=== PATIENT | female | born 1960 | race Caucasian/White ===

== ENCOUNTER → 2018-01-22 | Outpatient (CLI) | payer BC ==
[2018-01-23 23:12] LABS: CHLAMYDIA TRACHOMATIS, NAA Negative (Negative); NEISSERIA GONORRHOEAE, NAA Negative (Negative)
== END | disposition home or self-care (01) ==
LOC: LAB SHORT 12:15 → LAB 12:15
PROVIDERS: Internal Medicine Infectious Disease
DX: B20 Human immunodeficiency virus [HIV] disease (principal)
CPT/HCPCS: 87491; 87591

== ENCOUNTER 2023-05-12 09:51 | Observation (INO) | payer BC ==
[~2023-05-12] VITALS: Ht 167.6 cm; Wt 70.4 kg
[2023-05-12] MEDS ORDERED: VARENICLINE TA1 EACH PO (10:07)
[2023-05-12] MEDS ORDERED: LOSARTAN POTASS25 M2 PO (10:07)
[2023-05-12 10:37] LABS: BASOPHILS ABSOLUTE AUTO 0.06 K/mm3 (0.00-0.23); BASOPHILS PERCENT AUTO 1 % (0-2); EOSINOPHILS ABSOLUTE AUTO 0.12 K/mm3 (0.00-0.68); EOSINOPHILS PERCENT AUTO 2 % (0-6); Hematocrit 37.9 % (33.0-51.0); Hemoglobin 12.9 g/dL (11.5-16.0); IMMATURE GRAN ABSOLUTE AUTO 0.03 K/mm3 (0.00-0.10); IMMATURE GRAN PERCENT AUTO 0 % (0-1); LYMPHOCYTES ABSOLUTE AUTO 2.48 K/mm3 (0.84-5.20); LYMPHOCYTES PERCENT AUTO 31 % (21-46); MONOCYTES ABSOLUTE AUTO 0.48 K/mm3 (0.16-1.47); MONOCYTES PERCENT AUTO 6 % (4-13); Mean Corpuscular HGB 30.4 pg (26.0-34.0); Mean Corpuscular Volume 89 fL (80-100); Mean Platelet Volume 10.6 fL (9.1-12.4); NEUTROPHILS ABSOLUTE AUTO 4.74 K/mm3 (1.96-9.15); NEUTROPHILS PERCENT AUTO 60 % (41-73); Platelet Count 259 K/mm3 (150-400); RDW Coefficient Variation 13.3 % (11.7-14.2); RDW Standard Deviation 43.6 fL (35.1-46.3); Red Blood Cell Count 4.24 M/mm3 (3.80-5.20); White Blood Cell Count 7.91 K/mm3 (4.00-11.30)
[2023-05-12 10:52] LABS: Albumin, Blood 3.6 g/dL (3.4-5.0); Albumin/Globulin Ratio 1.1 (0.8-1.8); Bilirubin, Total 0.4 mg/dL (0.1-1.0); Calcium, Blood 8.6 mg/dL (8.5-10.1); Creatinine, Blood 1.09 mg/dL (0.40-1.00); Globulin, Blood 3.2 g/dL (2.2-4.0); Potassium, Blood 3.7 mmol/L (3.5-5.5); Total Protein, Blood 6.8 g/dL (6.4-8.2)
[2023-05-12 14:02] VITALS: BP 124/87
[2023-05-12] MEDS ORDERED: BIKTARVY 50-201 EAC1 PO (16:37)
--- NOTE | 2023-05-12 17:13 | NUR ---
ADMISSION AND SHIFT SUMMARY PATIENT ADMITTED TO MEDICAL FLOOR FOR POSSIBLE CVA/TIA. PATIENT ALERT AND ORIENTED. AMBULATING INDEPENDENTLY. NO SIGNS OF WEAKNESS. NO SPEECH ISSUES NOTED. PATIENT ABLE TO DRINK REGULAR FLUIDS WITH NO SIGNS OF CHOKING. PATIENT DENIES ANY PAIN OR SOB. PATIENT VERY ANXIOUS ABOUT BEING HERE. PATIENT STATES THAT SHE HAS HAD A LOT OF STRESS LATELY. PATIENT IS A SMOKER. RECENTLY TRIED TO QUIT BUT HAD INCREASE IN STRESS AND STARTED SMOKING AGAIN. NO SKIN ISSUES. HEAD CT, ECHO, CTA DONE. PATIENT CURRENTLY ON TELE IN .
[2023-05-12 20:08] VITALS: BP 120/65
--- NOTE | 2023-05-13 03:37 | NUR ---
SHIFT SUMMERY, PT APPEARS TO BE SLEEPING, EARLYER IN SHIFT PTS HERE TO VISIT. PT ALERT AND ORIENTED X4, NO VISION CHANGEDS NO PO DROOP, NO DEVATION TO TOUNGE. EQUAL STRONG HAND GRASPS, EQUAL PUSH PULLS X4. NO DRIFT TO ARMS OR LEGS NO NUMBNESS OR TINGLING. CALL LIGHT IN REACH.
[2023-05-13 04:51] VITALS: BP 145/73
[2023-05-13 05:00] LABS: BASOPHILS ABSOLUTE AUTO 0.06 K/mm3 (0.00-0.23); BASOPHILS PERCENT AUTO 1 % (0-2); EOSINOPHILS ABSOLUTE AUTO 0.22 K/mm3 (0.00-0.68); EOSINOPHILS PERCENT AUTO 4 % (0-6); Hematocrit 37.5 % (33.0-51.0); Hemoglobin 12.6 g/dL (11.5-16.0); IMMATURE GRAN ABSOLUTE AUTO 0.02 K/mm3 (0.00-0.10); IMMATURE GRAN PERCENT AUTO 0 % (0-1); LYMPHOCYTES ABSOLUTE AUTO 2.21 K/mm3 (0.84-5.20); LYMPHOCYTES PERCENT AUTO 40 % (21-46); MONOCYTES ABSOLUTE AUTO 0.42 K/mm3 (0.16-1.47); MONOCYTES PERCENT AUTO 8 % (4-13); Mean Corpuscular HGB 30.2 pg (26.0-34.0); Mean Corpuscular HGB Conc 33.6 g/dL (31.5-36.5); Mean Corpuscular Volume 90 fL (80-100); Mean Platelet Volume 10.1 fL (9.1-12.4); NEUTROPHILS ABSOLUTE AUTO 2.65 K/mm3 (1.96-9.15); NEUTROPHILS PERCENT AUTO 48 % (41-73); Platelet Count 248 K/mm3 (150-400); RDW Coefficient Variation 13.4 % (11.7-14.2); Red Blood Cell Count 4.17 M/mm3 (3.80-5.20); White Blood Cell Count 5.58 K/mm3 (4.00-11.30)
[2023-05-13 05:44] LABS: Alanine Aminotransfer (ALT/SGP 20 U/L (12-78); Albumin, Blood 3.4 g/dL (3.4-5.0); Albumin/Globulin Ratio 1.1 (0.8-1.8); Alk Phos 64 U/L (50-136); Anion Gap 5 mmol/L (6-16); Aspartate Aminotrans (AST/SGOT 16 U/L (12-37); Bilirubin, Total 0.3 mg/dL (0.1-1.0); Blood Urea Nitrogen 14 mg/dL (8-24); Bun/Creatinine Ratio 13.6 (12.0-20.0); CHOL/HDL RATIO 7.1; CO2, Blood 25 mmol/L (21-32); Calcium, Blood 8.5 mg/dL (8.5-10.1); Chloride, Blood 113 mmol/L (98-108); Cholesterol 219 mg/dL (50-200); Creatinine, Blood 1.03 mg/dL (0.40-1.00); Globulin, Blood 3.1 g/dL (2.2-4.0); Glomerular Filtration Rate 62 (60-); Glucose, Blood 101 mg/dL (70-99); HDL Cholesterol 31 mg/dL (>39); LDL/HDL RATIO 5.3; Low Density Lipoprotein Chol 163 mg/dL (0-110); Magnesium, Blood 2.2 mg/dL (1.6-2.4); Potassium, Blood 3.9 mmol/L (3.5-5.5); Sodium, Blood 143 mmol/L (136-145); Total Protein, Blood 6.5 g/dL (6.4-8.2); Triglycerides 124 mg/dL (30-160); Very Low Density Lipoprot Chol 24 mg/dL (6-32)
[2023-05-13] MEDS ORDERED: ASPI81CH PO (10:51)
[2023-05-13] MEDS ORDERED: CLOP75 PO (10:51)
[2023-05-13] MEDS ORDERED: ATOR40TA PO (10:51)
[2023-05-13] MEDS ORDERED: TOPI50 PO (10:54)
--- NOTE | 2023-05-13 12:00 | NUR ---
SHIFT SUMMARY AND DISCHARGE PATIENT CONTINUES TO BE INDEPENDENT IN THE ROOM. ALERT AND ORIENTED. SLIGHT WEAKNESS NOTED IN [employer]. PATIENT DENIES ANY CP, CONTINUES TO HAVE MILD HEADACHE. PATIENT TO HAVE ZIO PATCH PLACED OUTPATIENT. DISCHARGE INSTRUCTIONS REVIEWED WITH PATIENT. IV DC'D PATIENT TRANSPORTED OUT VIA WHEELCHAIR. CT, MRI AND ECHO DONE PRIOR TO DISCHARGE.
== END 2023-05-13 12:45 | disposition home or self-care (01) ==
LOC: ER 09:51 → MEDS 09:52 → ENPENDDIS 05-13 10:18 → MEDS 05-13 12:45
PROVIDERS: Family Medicine; ADMIT Student in an Organized Health Care Education/Training Program
DX: G45.9 Transient cerebral ischemic attack, unspecified (principal); N18.9 Chronic kidney disease, unspecified; F17.210 Nicotine dependence, cigarettes, uncomplicated; G43.409 Hemiplegic migraine, not intractable, without status migrainosus; E78.5 Hyperlipidemia, unspecified; Z88.2 Allergy status to sulfonamides
CPT/HCPCS: 36415; 70450; 70496; 70498; 70551; 80053; 80061; 83036; 83735; 84484; 85025; 93005; 93010; 93306; 96372; 99285-25; A9270; G0378; J1650; Q9967

== ENCOUNTER → 2024-02-15 | Outpatient (CLI) | payer BC ==
[~2024-02-15] MED LIST: ASPI81CH PO; ATOR40TA PO; BIKTARVY 50-201 EAC1 PO; CLOP75 PO; LOSARTAN POTASS25 M2 PO; TOPI50 PO; VARENICLINE TA1 EACH PO
[2024-02-15 13:58] LABS: Cholesterol 165 mg/dL (50-200); HDL Cholesterol 41 mg/dL (>39); LDL/HDL RATIO 2.4; Low Density Lipoprotein Chol 99 mg/dL (0-110); Triglycerides 124 mg/dL (30-160); Very Low Density Lipoprot Chol 24 mg/dL (6-32)
== END | disposition home or self-care (01) ==
LOC: LAB SHORT 11:38 → LAB 11:38
PROVIDERS: Family Medicine
DX: E78.5 Hyperlipidemia, unspecified (principal)
CPT/HCPCS: 80061

== ENCOUNTER → 2024-03-28 | Outpatient (CLI) | payer BC ==
[2024-03-28 11:37] LABS: BASOPHILS ABSOLUTE AUTO 0.08 K/mm3 (0.00-0.23); BASOPHILS PERCENT AUTO 1 % (0-2); EOSINOPHILS ABSOLUTE AUTO 0.19 K/mm3 (0.00-0.68); EOSINOPHILS PERCENT AUTO 2 % (0-6); Hematocrit 44.2 % (33.0-51.0); Hemoglobin 14.8 g/dL (11.5-16.0); IMMATURE GRAN ABSOLUTE AUTO 0.02 K/mm3 (0.00-0.10); IMMATURE GRAN PERCENT AUTO 0 % (0-1); LYMPHOCYTES ABSOLUTE AUTO 2.66 K/mm3 (0.84-5.20); LYMPHOCYTES PERCENT AUTO 30 % (21-46); MONOCYTES ABSOLUTE AUTO 0.77 K/mm3 (0.16-1.47); MONOCYTES PERCENT AUTO 9 % (4-13); Mean Corpuscular HGB Conc 33.5 g/dL (31.5-36.5); Mean Corpuscular Volume 96 fL (80-100); NEUTROPHILS ABSOLUTE AUTO 5.18 K/mm3 (1.96-9.15); NEUTROPHILS PERCENT AUTO 58 % (41-73); Platelet Count 209 K/mm3 (150-400); RDW Coefficient Variation 13.1 % (11.7-14.2); RDW Standard Deviation 46.1 fL (35.1-46.3); Red Blood Cell Count 4.62 M/mm3 (3.80-5.20)
[2024-03-28 12:36] LABS: Albumin, Blood 3.8 g/dL (3.4-5.0); Albumin/Globulin Ratio 1.2 (0.8-1.8); Bilirubin, Total 0.4 mg/dL (0.1-1.0); Bun/Creatinine Ratio 14.5 (12.0-20.0); Calcium, Blood 8.8 mg/dL (8.5-10.1); Creatinine, Blood 1.1 mg/dL (0.40-1.00); Globulin, Blood 3.3 g/dL (2.2-4.0); Potassium, Blood 4.3 mmol/L (3.5-5.5); Total Protein, Blood 7.1 g/dL (6.4-8.2)
== END | disposition home or self-care (01) ==
LOC: LAB 09:20 → LAB SHORT 09:20
PROVIDERS: Family Medicine
DX: R55 Syncope and collapse (principal); R42 Dizziness and giddiness
CPT/HCPCS: 80053; 85025